=== PATIENT | female | born 1960 | race Caucasian/White ===

== ENCOUNTER → 2020-12-11 15:02 | Outpatient (CLI) | payer OTHER, SELFPAY ==
--- NOTE | 2020-12-11 15:07 | XR_ITS ---
PROCEDURE: XR FOOT RT MIN 3V CLINICAL INDICATION: RT FOOT PAIN COMPARISON: CR XR HIP LT 2-3V W/PELVIS from 12/11/2020 FINDINGS: Mild hallux valgus with osteoarthritic change at the 1st MTP joint. Subchondral cystic changes are present. Hello no There is a lytic lesion at the distal aspect of the 5th metatarsal along the plantar surface measuring 1.5 by 0.8 cm. The margins are somewhat irregular with cortical disruption along the medial aspect of the lesion. This could be neoplastic or related to infection. Please correlate with clinical parameters. Other findings:None. IMPRESSION: Lytic lesion at the distal aspect of the 5th metatarsal. This may be neoplastic or due to infection. A geode is an additional consideration however the lesion does appear aggressive. No arthritic changes however are evident. Please correlate with clinical parameters. Dictated by: Tyrel Barakat MD 12/12/2020 08:42 Tyrel Barakat MD in [place] 12/12/2020 08:42
--- NOTE | 2020-12-11 15:07 | XR_ITS ---
PROCEDURE: XR HIP LT 2-3V W/PELVIS CLINICAL INDICATION: LT HIP PAIN COMPARISON: No exams were available for comparison FINDINGS: No fracture or dislocation is evident. No significant degenerative change. No lytic or blastic change. Unremarkable soft tissues. IMPRESSION: Negative left hip Dictated by: Tyrel Barakat MD 12/12/2020 08:47 Tyrel Barakat MD in [place] 12/12/2020 08:47
== END ==
PROVIDERS: PCP Nurse Practitioner Family; Visit Provider Nurse Practitioner Family
DX: M25.552 Pain in left hip (principal); M79.671 Pain in right foot
CPT/HCPCS: 73502; 73630

== ENCOUNTER 2021-07-26 14:22 | Emergency (ER) | payer OTHER, SELFPAY ==
[2021-07-26 14:46] VITALS: BP 116/75; PULSE 82; RESP 16; O2SAT 99; BMI 26.6
--- NOTE | 2021-07-26 15:08 | PC.NURSE ---
Pt decided that she wanted some blood drawn to just check her iron level, she is just having some slight lightheadness. Sent to [facility] for further evaluation
[2021-07-26 15:15] VITALS: BP 116/75; PULSE 82; RESP 16; TEMP 36.6; O2SAT 99; BMI 26.6
[2021-07-26 15:15] LABS: POC Glucose,Bedside 87 (70-110)
--- NOTE | 2021-07-26 15:25 | HMH.EDUTC ---
[facility] [place] Disposition Clinical Impression: Chills Disposition: Home, Self-Care Condition on Discharge: Good Instructions: DI for Hypoglycemia Additional Instructions: *Monitor Temp, Over the counter Motrin or Tylenol as directed/as needed Tylenol every 4 hours and Motrin every 6 hours (as long as your family doctor has told you that you can take it) for fever or pain. and straight to ER if unable to lower temp less than 101.0 after medication given Return immediately if symptoms worsen Straight to ER if any life threatening symptoms Follow up with Family Doctor for further testing Follow up IMMEDIATELY for new or worsening symptoms or no Noticeable improvement over the next 48-72 hours. 911 for difficulty breathing or swallowing You were tested for today for Upper Respiratory Panel with COVID19 your test result should be back in the next 24-48 hours, you results should be available on the [facility] My Health Portal Referrals: Albina Doran APRN [Primary Care Provider] - As needed Time of Disposition: 15:43 Medical Decision Making - Isauro Inquiry Pt receiving controlled substance: No Isauro was queried for this patient: No Vital Signs: 07/26/21 14:46 07/26/21 15:15 07/26/21 15:43 Temperature 98 F 98.0 F Temperature Source Oral Pulse Rate 82 Pulse Rate [Left Radial] 82 82 Respiratory Rate 16 16 16 Blood Pressure 116/75 Blood Pressure [Right Arm] 116/75 116/75 Blood Pressure Mean [Right Arm] 88 88 Blood Pressure Source [Right Arm] Automatic Cuff Automatic Cuff Blood Pressure Position [Right Arm] Sitting Sitting 02 Sat by Pulse Oximetry 99 99 Oxygen Delivery Method Room Air Room Air - Lab Data Lab Results 07/26/21 14:35: POC Glucose 87 07/26/21 15:30: Chlamy pneumoniae PCR Not detected, Adenovirus (PCR) Not detected, B. pertussis DNA (PCR) Not detected, Coronavirus OC43 (PCR) Not detected, Coronavirus HKU1 (PCR) Not detected, Coronavirus 229E (PCR) Not detected, Coronavirus NL63 (PCR) Not detected, Human Metapneumovir PCR Not detected, Influenza A (H1) PCR Not detected, Influ A (H1N1/09) PCR Not detected, Influenza A (H3) PCR Not detected, Influenza Type A (PCR) Not detected, Influenza Type B (PCR) Not detected, M. pneumoniae (PCR) Not detected, Parainfluenza 1 (PCR) Not detected, Parainfluenza 2 (PCR) Not detected, Parainfluenza 3 (PCR) Not detected, Parainfluenza 4 (PCR) Not detected, RSV (PCR) Not detected, Entero/Rhino (PCR) Not detected Orders (Tests/Meds): ORDERS Category Date Time Status Covid-19 Nasal PCR ([facility]) Routine Lab 07/26/21 15:30 Received Medical Decision Narrative: Spoke with Babita Doran and she advised to test patient for COVID and have her follow up in the office next week and they would discuss checking her vitamin levels like patient was requesting [facility] [place] HPI - General Stated complaint: shaking Time Seen by Provider: 07/26/21 15:25 Mode of Arrival: Ambulatory Source of Information: Patient, Spouse, Relative Limitations: No Limitations Description of Symptoms (Recalled from Triage Doc. by RN): Pt states about 45 minutes ago she started shaking and feeling a little light headed and cold, pt states that she hadnt ate today or drank much other than a frappe around 8:30am. Symptoms have resolved at this time. Glucose reading 87, pt given orange juice and water. Pt states that she might just go home and come back if she feels that way again. Pt sitting in the triage room at this time, waiting to see how she feels before she leave. Family present with pt - History of Present Illness Provider Complaint: Patient to the [facility] from triage at 1515 States that she was at [employer] earlier and she felt a little light headed and started shivering States that she felt cold and had to go out to the car to get warmed up State that it took her a little while to warm up States that she is feeling much better now but her FSBS was 80 something States that she is feeling much better now but wante
[2021-07-26 15:40] LABS: Adenovirus,PCR Not Detected (NotDetected); Bordetella Pertussis Not Detected (NotDetected); Chlamydophila Pneumoniae, PCR Not Detected (NotDetected); Coronavirus 229E Not Detected (NotDetected); Coronavirus NL63 Not Detected (NotDetected); Coronavirus OC43 Not Detected (NotDetected); Coronovirus HKU1,PCR Not Detected (NotDetected); Human Metapneumovirus Not Detected (NotDetected); Influenza A, PCR Not Detected (NotDetected); Influenza AH1, 2009 Not Detected (NotDetected); Influenza AH1, PCR Not Detected (NotDetected); Influenza AH3,PCR Not Detected (NotDetected); Influenza B, PCR Not Detected (NotDetected); Mycoplasma Pneumoniae, PCR Not Detected (NotDetected); Parainfluenza 1, PCR Not Detected (NotDetected); Parainfluenza 2, PCR Not Detected (NotDetected); Parainfluenza 3, PCR Not Detected (NotDetected); Parainfluenza 4, PCR Not Detected (NotDetected); Respiratory Syncytial Virus Not Detected (NotDetected); Rhinovirus/Enterovirus Not Detected (NotDetected)
[2021-07-26 15:43] VITALS: BP 116/75; PULSE 82; RESP 16; TEMP 36.7; O2SAT 99
== END 2021-07-26 15:46 | disposition home or self-care (01) ==
PROVIDERS: Emergency Provider Nurse Practitioner; PCP Nurse Practitioner Family
DX: R50.9 Fever, unspecified (principal)
CPT/HCPCS: 82962; 87486; 87581; 87632; 87798; 99212; C9803; G0463; U0003; U0005

== ENCOUNTER → 2022-05-06 14:01 | Outpatient (CLI) | payer OTHER, SELFPAY ==
--- NOTE | 2022-05-06 14:06 | MM_ITS ---
PROCEDURE INFORMATION: Exam: US Right Breast, Complete, Screening US Left Breast, Complete, Screening MG Bilateral Diagnostic Breast Tomosynthesis Exam date and time: 05/06/2022 1:59 PM Age: 61 years old Clinical indication: Concern for bilateral breast pain. Personal history of left breast cancer, status post left lumpectomy and radiation 4 years ago. TECHNIQUE: Imaging protocol: Complete ultrasound of all four quadrants of the right breast and the retroareolar regions, including ultrasound of the axilla when performed. Complete ultrasound of all four quadrants of the left breast and the retroareolar regions, including ultrasound of the axilla when performed. Bilateral Diagnostic tomosynthesis and 2D mammography including computer-aided detection (CAD) when performed. Unilateral or bilateral exam. COMPARISON: 1. MG MAMMO DIAGNOSTIC DIGITAL TOMOSYNTHESIS BILATERAL W CAD 03/15/2018 2:25 PM 2. MG MAMMO DIAGNOSTIC DIGITAL TOMOSYNTHESIS LEFT W CAD 07/02/2016 2:59 PM 3. MG MAMMO POST CLIP PLACEMENT LEFT 11/16/2015 3:41 PM 4. MG MAMMO DIAGNOSTIC DIGITAL TOMOSYNTHESIS BILATERAL W CAD 11/16/2015 1:36 PM FINDINGS: . MAMMOGRAPHY: Breast composition: There are scattered areas of fibroglandular density. Mass: No suspicious mass. Architectural distortion: Stable minimal post left lumpectomy architectural distortion in the upper inner breast. Calcifications: No suspicious calcifications. Asymmetric density: None. Skin thickening: None. Axillary adenopathy: None. Surgical clips in the left axilla ULTRASOUND: Bilateral sonography, all 4 quadrants, retroareolar and axilla. On the right, at 10 o'clock 10 cm from the nipple, oval hypoechoic avascular mass measuring 0.7 x 0.6 x 0.3 cm more likely a complicated cyst with debris than solid. Possible abnormal appearing right axillary node with suggestion of displaced fatty hilum and cortical thickness to 0.6 cm, with no increased Doppler flow. On the left, scarring annotated 10 o'clock with very minimal fluid/seroma measuring 0.9 x 0.2 cm. Possible abnormal appearing axillary lymph nodes with no definite fatty hilum and minimal increased Doppler flow, the largest measures 2.1 x 1.3 cm. There is also a sonographically normal appearing axillary lymph node. IMPRESSION: See comments Possible bilateral abnormal axillary lymph nodes, correlate clinically and suggest 4-6 week follow-up sonography or fine-needle aspiration. Probable benign-appearing 0.7 cm, more likely complicated cyst on the right at 10 o'clock, suggest six-month follow-up targeted right sonography unless otherwise clinically indicated. Further evaluation of a painful abnormality should be based on clinical grounds regardless of radiographic findings or lack thereof. No mammographic evidence of malignancy. ASSESSMENT: BI-RADS Category 3: Probably benign
== END ==
PROVIDERS: PCP Nurse Practitioner Family; Visit Provider Nurse Practitioner Family
DX: N64.4 Mastodynia (principal); R59.0 Localized enlarged lymph nodes; Z85.3 Personal history of malignant neoplasm of breast
CPT/HCPCS: 76641; 77062; 77066; G0279

== ENCOUNTER → 2022-06-16 15:24 | Outpatient (CLI) | payer OTHER, SELFPAY ==
[2022-06-16 16:46] LABS: Basophils % 0.7 % (0.1-2.0); Eosinophils # 0.2 K/mm3 (0.0-0.4); Eosinophils % 3.1 % (0.1-12.0); Hematocrit 37.5 % (37.0-47.0); Hemoglobin 12.2 g/dL (12.2-16.2); Lymphocytes # 1.4 K/mm3 (0.7-4.5); Mean Corpuscular HGB Conc 32.5 g/dL (31.8-35.4); Mean Corpuscular Hemoglobin 29.5 pg (27.0-31.2); Mean Corpuscular Volume 90.7 fl (81-99); Mean Platelet Volume 8.9 fl (7.4-10.4); Monocytes # 0.2 K/mm3 (0.1-1.0); Monocytes % 3.8 % (1.7-9.3); Neutrophils # 4.2 K/mm3 (1.8-7.8); Neutrophils % 69.4 % (37.0-80.0); Platelet Count 209 K/mm3 (142-424); Red Blood Count 4.13 M/mm3 (4.20-5.40); Red Cell Distribution Width 14.2 % (11.5-17.5)
[2022-06-16 17:13] LABS: Chloride 100 mmol/L (98-107); Sodium 135 mmol/L (136-145)
[2022-06-16 17:14] LABS: Potassium 4.3 mmoL/L (3.5-5.1)
[2022-06-16 17:16] LABS: Alanine Aminotransferase 17 U/L (12-78); Alkaline Phosphatase 49 U/L (38-126); Amylase 92 U/L (30-110); Anion Gap 13.3 mEq/L (5-15); Aspartate Amino Transferase 38 U/L (14-36); Bilirubin,Total 0.6 mg/dl (0.2-1.3); Blood Urea Nitrogen 16 mg/dl (7-17); Calcium 9.1 mg/dl (8.4-10.2); Carbon Dioxide 26 mmol/L (22.0-30.0); Estimated Glomerular Filt Rate 56 ml/min (>60); GFR (African American) 68 ML/MIN (>60); Glucose 86 mg/dl (74-100); Lipase 139 U/L (23-300)
[2022-06-16 17:17] LABS: Albumin Level 4.8 g/dl (3.5-5.0); Albumin/Globulin Ratio 1.8 (1.1-1.8); Globulin 2.7 g/dL (1.3-3.2); Total Protein,Serum 7.5 g/dl (6.3-8.2)
[2022-06-19 08:29] LABS: H. pylori Breath Test Negative (Negative)
== END ==
PROVIDERS: PCP Nurse Practitioner Family; Visit Provider Nurse Practitioner Family
DX: R10.10 Upper abdominal pain, unspecified (principal); R10.13 Epigastric pain
CPT/HCPCS: 36415; 80053; 82150; 83013; 83690; 85025

== ENCOUNTER → 2022-06-18 07:40 | Outpatient (CLI) | payer OTHER, SELFPAY ==
--- NOTE | 2022-06-18 07:48 | US_ITS ---
FINAL REPORT CLINICAL HISTORY: UPPER ABD PAIN,DYSPEPSIA FINDINGS: Sonographic images of the right upper quadrant were obtained. The pancreas is partially obscured. There is a small 7 mm presumed cyst in the lateral segment of the left hepatic lobe. The gallbladder appears normal without evidence of gallstones.There is no evidence of biliary ductal dilatation.The common duct measures 3 mm. Limited images of the right kidney are unremarkable. IMPRESSION: Small presumed cyst in the lateral segment of the left hepatic lobe. Otherwise unremarkable exam. Reviewed, Interpreted and Dictated by Kevin Rouse III, MD Transcribed by Brunilda Hall Authenticated and [facility]
== END ==
PROVIDERS: PCP Nurse Practitioner Family; Visit Provider Nurse Practitioner Family
DX: R10.10 Upper abdominal pain, unspecified (principal); R10.13 Epigastric pain
CPT/HCPCS: 76705

== ENCOUNTER → 2022-09-04 13:13 | Outpatient (CLI) | payer OTHER, SELFPAY ==
--- NOTE | 2022-09-04 13:18 | US_ITS ---
FINAL REPORT CLINICAL HISTORY: THYROID NODULES COMPARISON: None FINDINGS: Ultrasound examination of the thyroid gland: The right lobe of the thyroid is normal in size and measures 4.2 x 1.2 x 2.24 cm in size. The overall echotexture of the lobe is inhomogeneous with multiple small nodules. There is a 6 x 5 x 4 cm cyst present in the upper pole of the right lobe of the thyroid gland. This is a TI-RADS category 1 nodule. The left lobe of the thyroid gland measures 3.6 x 1.1 x 1.6 cm in size and is also heterogeneous in echotexture. There is a solid hyperechoic nodule in the left lobe of the thyroid gland measuring 6 x 5 x 4 mm in size, a TI-RADS category 3 nodule. The isthmus of the thyroid gland measures 3.5 mm in thickness. IMPRESSION: Diffusely heterogeneous echotexture of the thyroid gland bilaterally. Two small nodules are somewhat discrete in appearance, and as described above one is a TI-RADS category 1 nodule, the other is a TI-RADS category 3 nodule. Given the small size of these nodules no follow-up is recommended at this time according to TI-RADS criteria. Reviewed, Interpreted and Dictated by Kevin Rouse III, MD Transcribed by Tiffanie Alfaro Authenticated and [facility]
== END ==
PROVIDERS: PCP Nurse Practitioner Family; Visit Provider Nurse Practitioner Family
DX: E03.9 Hypothyroidism, unspecified (principal); E04.1 Nontoxic single thyroid nodule
CPT/HCPCS: 76536

== ENCOUNTER → 2022-11-10 12:00 | Outpatient (CLI) | payer OTHER, SELFPAY ==
[2022-11-12 09:55] LABS: Triiodothyronine (T3) Free 2.9 pg/mL (2.0-4.4)
== END ==
LOC: LAB.DROPOF 11-11 00:02
PROVIDERS: PCP Nurse Practitioner Family; Visit Provider Nurse Practitioner Family
DX: E03.9 Hypothyroidism, unspecified (principal)
CPT/HCPCS: 84436; 84443; 84481

== ENCOUNTER → 2023-02-09 14:40 | Outpatient (CLI) | payer OTHER, SELFPAY ==
[2023-02-09 15:23] LABS: Alanine Aminotransferase 59 U/L (12-78); Albumin Level 4.4 g/dl (3.5-5.0); Albumin/Globulin Ratio 1.6 (1.1-1.8); Alkaline Phosphatase 80 U/L (38-126); Anion Gap 11.5 mEq/L (5-15); Aspartate Amino Transferase 51 U/L (14-36); Bilirubin,Total 0.4 mg/dl (0.2-1.3); Blood Urea Nitrogen 13 mg/dl (7-17); Calcium 9.2 mg/dl (8.4-10.2); Carbon Dioxide 28 mmol/L (22.0-30.0); Chloride 104 mmol/L (98-107); Chol/HDL Ratio 3.3 (1-3.5); Cholesterol 227 mg/dl (140-200); Estimated Glomerular Filt Rate 101 ml/min (>60); GFR (African American) 123 ML/MIN (>60); Globulin 2.8 g/dL (1.3-3.2); Glucose 91 mg/dl (74-100); HDL Cholesterol 68 mg/dl (40-60); Potassium 4.5 mmoL/L (3.5-5.1); Sodium 139 mmol/L (136-145); Total Protein,Serum 7.2 g/dl (6.3-8.2); Triglycerides 166 mg/dl (30-150); VLDL Cholesterol 33 mg/dL (0-40)
[2023-02-09 15:34] LABS: Direct LDL Cholesterol 111.99 mg/dL (100-129)
[2023-02-09 15:40] LABS: T4 (Thyroxine) 10.3 ug/dl (5.53-11.0)
[2023-02-09 15:53] LABS: Thyroid Stimulating Hormone 3.49 uIU/mL (0.465-4.68)
[2023-02-10 08:17] LABS: Triiodothyronine (T3) Free 2.9 pg/mL (2.0-4.4)
== END ==
LOC: LAB.DROPOF 14:41
PROVIDERS: PCP Nurse Practitioner Family; Visit Provider Nurse Practitioner Family
DX: I49.9 Cardiac arrhythmia, unspecified; E03.8 Other specified hypothyroidism; Z79.899 Other long term (current) drug therapy
CPT/HCPCS: 80053; 80061; 84436; 84443; 84481

== ENCOUNTER 2023-02-19 13:04 | Emergency (ER) | payer OTHER, SELFPAY ==
[2023-02-19 13:40] VITALS: BP 113/69; PULSE 75; RESP 20; TEMP 36.9; O2SAT 96; BMI 30.2
--- NOTE | 2023-02-19 13:46 | EXP.UTC ---
Discharge Plan Disposition Patient Disposition: Home, Self-Care Condition: Good Prescriptions Prescriptions: New Paxlovid 300 mg (150 mg x 2)-100 mg tablets,dose pack See Rx Instructions .ROUTE .COMPLEX Qty: 30 0RF Rx Instructions: take TWO 150 mg tablets of nirmatrelvir with ONE 100 mg tablet of ritonavir twice daily for 5 days benzonatate [benzonatate] 100 mg capsule 100 mg PO TIDP PRN (Reason: Cough) Qty: 30 0RF ondansetron 4 mg Tablet,Disintegrating 4 mg PO Q8H PRN (Reason: Nausea) Qty: 12 0RF No Action levothyroxine 75 mcg tablet 75 mcg PO DAILY 30 Days Qty: 30 2RF meloxicam 7.5 mg Tablet 7.5 mg PO DAILY Referrals Follow up/Referrals: Albina Doran APRN [Primary Care Provider] - See instructions Activity Restrictions/Add. Instructions Additional Instructions/Restrictions: Drink plenty of fluids. Take tylenol or ibuprofen for pain or fever. Take the medications as directed. Follow up with your regular doctor. GO TO THE ER FOR ANY WORSENING SYMPTOMS Clinical Impressions Clinical Impression: Acute viral syndrome, Exposure to 2019 novel coronavirus Instructions Patient Instructions: Coronavirus Disease 2019, Preventing the Spread of Coronavirus Discharge Instructions Discharge ED Provider: Rodney Benson [facility] [place] General Stated complaint: sore throat, cough, home test positive Time Seen by Provider: 02/19/23 13:45 History of Present Illness Provider Complaint: She states that for the past 2 days she has had fever, chills, and body aches. She has had a positive covid-19 test at her home today. Related Data Home Medications Medication Instructions Recorded Confirmed meloxicam 7.5 mg tablet 7.5 mg PO DAILY 02/19/23 02/19/23 Previous Rx's Medication Instructions Recorded levothyroxine 75 mcg tablet 75 mcg PO DAILY 30 days #30 tabs 02/09/23 benzonatate 100 mg capsule 100 mg PO TIDP PRN Cough #30 caps 02/19/23 nirmatrelvir 300 mg (150 mg See Rx Instructions PO .COMPLEX 02/19/23 x2)-ritonavir 100 mg tablet,dose #30 tabs pack (Paxlovid) ondansetron 4 mg disintegrating 4 mg PO Q8H PRN Nausea #12 tabs 02/19/23 tablet Allergies Allergy/AdvReac Type Severity Reaction Status Date / Time pet dander Allergy Mild Sneezing Uncoded 01/06/23 14:48 PFSH PFSH Disclaimer: The information contained in this section may have been updated after the patient was seen, as this information can be updated by other users. Medical History (Updated 02/19/23 @ 14:09 by Rodney Benson APRN) Arthritis Hypothyroid Social History Smoking Status: Never smoker alcohol intake: never current occupational status: employed Travel in the last 8 weeks: None ROS Obtained: Yes All systems reviewed & no additional complaints except as documented Constitutional Constitutional: Reports chills and Reports fever(s) Eyes Eyes: Denies eye discharge ENT Ears, Nose, Mouth, and Throat: Reports as per HPI Cardiovascular Cardiovascular: Denies chest pain Respiratory Respiratory: Denies chest congestion and Reports cough Gastrointestinal Gastrointestingal: Reports nausea; Denies abdominal pain, constipation, cramping, diarrhea or vomiting Musculoskeletal Musculoskeletal: Denies arthralgias Integumentary/Breasts Skin/Breast: Denies rash Neurologic Neurologic: Denies paresthesias Physical Exam General General appearance: alert and in no apparent distress Head Head exam: atraumatic, normocephalic and normal inspection Eye Eye exam: Present normal appearance, PERRL and EOMI ENT ENT exam: Present normal exam, normal oropharynx, mucous membranes moist, TM's normal bilaterally and normal external ear exam Neck Neck exam: Present normal inspection, full ROM and trachea midline; Absent meningismus or lymphadenopathy Chest Chest inspection: Present normal inspection and symmetric chest wall rise; Absent tenderness Res
[2023-02-19 14:09] VITALS: BP 113/69; PULSE 75; RESP 20; TEMP 36.9; O2SAT 96
== END 2023-02-19 14:13 | disposition home or self-care (01) ==
PROVIDERS: Emergency Provider Nurse Practitioner Family; PCP Nurse Practitioner Family
DX: U07.1 COVID-19 (principal); R50.9 Fever, unspecified; R07.0 Pain in throat; R05.9 Cough, unspecified; R11.0 Nausea; M79.18 Myalgia, other site; E03.9 Hypothyroidism, unspecified
CPT/HCPCS: 87635; 99212; 99214; G0463

== ENCOUNTER 2025-02-01 13:21 | Outpatient (CLI) | payer OTHER, SELFPAY ==
--- OUTSIDE RECORDS SUMMARY | 2025-02-01 13:28 | XMS_ITS | Clinical Summary ---
Author Organization [facility] Address [address] [place] [address] Care Team Providers Care Bag Machine Tender Name Role Phone Espinoza Albina COOMBS Primary Care Provider + [phone] Allergies No known active allergies Medications Cinnamon 500 MG tablet Take by mouth. Active Krill Oil 300 MG capsule Take by mouth. Active Turmeric 500 MG capsule Take by mouth. Active cholecalciferol (VITAMIN D3) 1000 UNITS tablet Take 1,000 Units by mouth Daily. Active ALPHA LIPOIC ACID PO Take by mouth. Active vitamin B-12 (CYANOCOBALAMIN) 500 MCG tablet Take 500 mcg by mouth Daily. Active anastrozole (ARIMIDEX) 1 MG tablet 04/06/2016 Active Active Problems No known active problems Immunizations Immunization Administration Dates Next Due FluMist 2-49yrs 01/07/2016 Family History Medical History Relation Name Comments No Known Problems Brother No Known Problems Daughter No Known Problems Father Breast cancer Maternal Aunt age unknown No Known Problems Maternal Grandmother No Known Problems Mother No Known Problems Paternal Aunt No Known Problems Paternal Grandmother No Known Problems Sister No Known Problems Son BRCA 1/2 Neg Hx Ovarian cancer Neg Hx Relation Name Status Comments Brother Daughter Father Maternal Aunt Maternal Grandmother Mother Paternal Aunt Paternal Grandmother Sister Son Social History Tobacco Use Types Packs/Day Years Used Date Smoking Tobacco: Never Alcohol Use Standard Drinks/Week Comments No 0 (1 standard drink = 0.6 oz pur e alcohol) Abuse Screen Answer Date Recorded Unsafe at Home or Work/School Not on file Feels Threatened by Someone? Not on file 12/2022 Does Anyone Keep You from Co ntacting Others or Doint Things Outside the Home? Not on file 12/10/2022 Physical Sign of Abuse Present Not on file 1 Housing Stability Answer Date Recorded Current Living Arrangements Not on file 11/30 Potentially Unsafe Housing Conditions Not on angelique e 12/10/2022 Family and Community Support Answer Enrique e Recorded Help with Day-to-Day Activities Not on file 12/10/2022 Lonely or Isolated Not on file 12/10/2022 Employment Answer Date Recorded Do you want help finding or keeping work or a krystin b? Not on file 12/10/2022 Disabilities Answer Date Recorded Concentrating, Remembering, or Making Decisions Difficulty Not on file 12/10/2022 Doing Errands Independently Difficulty Not on fi le 12/10/2022 Education Answer Date Recorded Help with school or training? Not on file Preferred Language Not on file 12/10/2022 Comments No Sex and Gender Information Value Date Recorded Sex Assigned at Not on file Legal Sex Female 4:14 PM EDT Gender Identity Not on file Sexual Orientation Not on file Last Filed Vital Signs Vital Sign Reading Time Taken Comments Blood Pressure 133/71 04/07/2016 2:55 PM EST Pulse 56 04/07/2016 2:55 PM EST Temperature 36.1 C (97 F) 04/07/2016 2:55 PM EST Respiratory Rate 18 04/07/2016 2:55 PM EST Oxygen Saturation - - Inhaled Oxygen Concentration - - Weight 73.5 kg (162 lb) 04/07/2016 2:55 PM EST Height 165.1 cm (5' 5 ) 04/07/2016 2:55 PM EST Body Mass Index 26.96 04/07/2016 2:55 PM EST Plan of Treatment Health Maintenance Due Date Last Done Comments ANNUAL PHYSICAL 1960 Annual Gynecologic Pelvic an d Breast Exam 1960 HEPATITIS C SCREENING 1960 TDAP/TD VACCINES (1 - Tdap) 05/06/1996 05/05/1996 COLOGUARD 2005 COLON CANCER SCREENING 5 YEA R SIGMOIDOSCOPY 2005 COLONOSCOPY [address]ER SCREENING [address] COLONOGRAPHY 2005 FECAL OCCULT BLOOD TEST 2005 FIT Testing (1 year) 2005 Pneumococcal Vaccine 50+ (1 of 1 - PCV) 2010 ZOSTER VACCINE (1 of 2) 2010 INFLUENZA VACCINE 09/30/2024 01/06/2023, 01/07/2016 MAMMOGRAM 06/22/2025 06/23/2023, 04/30, 05/12/2022, Additional history exists Procedures Procedure Name Priority Date/Time Associated Diagnosis Comments MAMMO DIAGNOSTIC DIGITAL TOMOSYNTHESIS BILATERAL W CAD Routine 06/23/2023 2:57 PM EDT Abnormal mammogram from Last 3 Months or Most Recently Relevant to Health Maintenance Results * (ABNORMAL) Mammo Diagnostic Digital Tomosynthesis Bilateral With CAD (06/23/2023 2:57 PM EDT) Anatomical Region Laterality Modality Breast Bilateral Mammography 06/23/2023 3:21 PM EDT Impressions 06/23/2023 4:00 PM EDT 1. Persistent left axillary lymphadenopathy. 2. No findings suspicious for malignancy within the breast tissue on bilateral mammographic imaging. RECOMMENDATION: 1. Ultrasound-guided core biopsy of the 1.7 cm left axillary lymph node with abnormal cortical thickening, to include flow cytometry. 2. The patient is a candidate for screening breast MRI imaging. BI-RADS CATEGORY: 4, SUSPICIOUS. CAD was utilized. The standard false-negative rate of mammography is between 10% and 25%. Complex patterns or increased breast density will markedly elevate the false-negative rate of mammography. A letter, in lay terminology, with the results of this exam was given to the patient at the time of the visit. Physician Order: Ultrasound Guided Breast Biopsy Diagnosis: Abnormal ultrasound finding This report was finalized on 06/23/2023 4:[address] Clarice Lynn MD. Narrative 06/23/2023 4:00 PM EDT BILATERAL DIAGNOSTIC MAMMOGRAM AND LEFT AXILLARY ULTRASOUND HISTORY: 62-year-old patient who presents for follow-up left mammographic and ultrasound imaging. Ultrasound-guided core biopsy of a left axillary lymph node was recommended on 01/29/2023. The patient did not return for this core biopsy. She is currently due for bilateral mammographic imaging. The patient has a history of left breast conservation surgery with negative sentinel lymph node sampling performed on 12/19/2015. She has no new breast complaints. TECHNIQUE: Bilateral low dose, full field digital CC and MLO views were obtained with tomosynthesis. Focused ultrasound imaging was performed of the left axilla. COMPARISON: 07/14/2022, 05/06/2022, 03/15/2018, 07/02/2016, and 11/16/2015 FINDINGS: There are scattered areas of fibroglandular density. RIGHT BREAST The fibroglandular pattern is stable. There are no suspicious masses, worrisome calcifications, areas of architectural distortion, or other secondary signs of malignancy. LEFT BREAST The fibroglandular pattern is stable. There are stable postoperative changes at the upper inner quadrant lumpectomy site. No suspicious findings are identified within the breast tissue. However, hyperdense left axillary lymph nodes are again visualized. Focused ultrasound imaging of the left axilla demonstrates multiple axillary lymph nodes with thickened cortical tissue. There is a rounded 1.7 cm lymph node with cortical thickening resulting in compression of the hilum. This corresponds to the lymph node that was recommended for ultrasound-guided core biopsy at the time of the 07/14/2022 imaging study. The lymph node measured 1.5 cm on the prior ultrasound study. Ultrasound-guided core biopsy is again recommended. Albina Doran APRN [facility] [place] MAMMOGRAPHY ORDERABLES F inal Result from Last 3 Months or Most Recently Relevant to Health Maintenance Insurance [address] [place] [id number] [facility] Care Teams Bag Machine Tender Relationship Specialty Start Date End Date Albina Doran APRN PCP - General Internal Medicine 06/24/22
[2025-02-01 14:01] LABS: Alanine Aminotransferase 24 U/L (12-78); Albumin Level 4.5 g/dl (3.5-5.0); Albumin/Globulin Ratio 1.6 (1.1-1.8); Alkaline Phosphatase 75 U/L (38-126); Anion Gap 11.4 mEq/L (5-15); Aspartate Amino Transferase 37 U/L (14-36); Bilirubin,Total 0.7 mg/dl (0.2-1.3); Blood Urea Nitrogen 13 mg/dl (7-17); Carbon Dioxide 25 mmol/L (22.0-30.0); Chloride 104 mmol/L (98-107); Cholesterol 229 mg/dl (140-200); Creatinine,Serum 0.70 mg/dl (0.52-1.04); Estimated Glomerular Filt Rate 84 ml/min (>60); GFR (African American) 102 ML/MIN (>60); Globulin 2.9 g/dL (1.3-3.2); HDL Cholesterol 67 mg/dl (40-60); Potassium 4.4 mmoL/L (3.5-5.1); Sodium 136 mmol/L (136-145); Total Protein,Serum 7.4 g/dl (6.3-8.2); Triglycerides 106 mg/dl (30-150)
[2025-02-01 14:17] LABS: T4 (Thyroxine) 9.1 ug/dl (5.53-11.0)
[2025-02-01 14:19] LABS: Free T4 (Free Thyroxine) 1.22 ng/dl (0.78-2.19)
[2025-02-01 14:27] LABS: 25-OH Vitamin D, Total 35.1 ng/mL (30-100)
[2025-02-01 14:31] LABS: Thyroid Stimulating Hormone 1.11 uIU/mL (0.465-4.68)
[2025-02-01 14:51] LABS: Vitamin B12 464 pg/mL (239-931)
[2025-02-01 16:57] LABS: Calcium 9.4 mg/dl (8.4-10.2); Glucose 83 mg/dl (74-100)
[2025-02-03 08:16] LABS: Triiodothyronine (T3) Free 2.7 pg/mL (2.0-4.4)
== END 2025-02-01 23:59 | disposition home or self-care (01) ==
LOC: LAB.DROPOF 13:21
PROVIDERS: PCP Nurse Practitioner Family; Visit Provider Nurse Practitioner Family
DX: E03.9 Hypothyroidism, unspecified (principal)
CPT/HCPCS: 80053; 80061; 82306; 82607; 84436; 84439; 84443; 84481